=== PATIENT | female | born 1965 | race African-American/Black ===

== ENCOUNTER 2025-10-30 06:43 | Emergency (ER) | payer BC, OTHER ==
[~2025-10-30] VITALS: Ht 175.3 cm; Wt 68.0 kg
[2025-10-30] MEDS: HYDROCODONE/ACETAMINOPHEN 5/325MG TABLET PO ONE (07:42)
[2025-10-30] MEDS: KETOROLAC 30MG/ML VIAL IM ONE (07:43)
[2025-10-30] MEDS: PROPOFOL 200MG/20ML VIAL IV ONE (09:10)
[2025-10-30 09:36] VITALS: O2SAT 99
[2025-10-30] MEDS ORDERED: IBUP-2030 MT (10:02)
[2025-10-30 10:24] VITALS: BP 151/81; PULSE 89; RESP 20; TEMP 37; O2SAT 100
== END 2025-10-30 10:24 | disposition home or self-care (01) ==
LOC: ER 06:43
DX: S53.105A Unspecified dislocation of left ulnohumeral joint, initial encounter (principal); I10 Essential (primary) hypertension; W01.0XXA Fall on same level from slipping, tripping and stumbling without subsequent striking against object, initial encounter; Y93.89 Activity, other specified; Y92.89 Other specified places as the place of occurrence of the external cause; Y99.8 Other external cause status
CPT/HCPCS: 73080; 73090; 93005; 24600; 96372; 99152; 99285; J1885; J2704; Z7610 ×2; A6449; A4565